=== PATIENT | female | born 1955 | race Caucasian/White ===

== ENCOUNTER 2022-06-04 17:39 | Emergency (ER) | payer MEDICARE, OTHER ==
[2022-06-04] MEDS ORDERED: Ibuprofen 600 MG Tab PO ONE (17:47)
== END 2022-06-04 19:00 | disposition home or self-care (01) ==
LOC: LL.ED 17:39
DX: S93.401A Sprain of unspecified ligament of right ankle, initial encounter (principal); I10 Essential (primary) hypertension; Z88.5 Allergy status to narcotic agent; Z79.899 Other long term (current) drug therapy; W19.XXXA Unspecified fall, initial encounter
CPT/HCPCS: 73610; 99283; A9270